=== PATIENT | male | born 1985 | race Caucasian/White ===

== ENCOUNTER 2021-04-05 13:14 | Emergency (ER) | payer OTHER ==
[2021-04-05 13:22] VITALS: TEMP 98.1
--- NOTE | 2021-04-05 13:23 | ED ---
General Adult HPI - General Stated complaint: overdose Time Seen by Provider: 04/05/21 13:14 Source: patient, RN notes reviewed, old records reviewed - History of Present Illness Initial comments: This is a 35-year-old male who is brought in by EMS after he [facility] his car into the [facility]. Patient stated he used heroin and then the next he remembers his doctor to the paramedics. According to the paramedics when fire arrived they could not obtain a pulse so they put the AED on the patient and no shock was advised they still could not palpate a pulse and they started with the lucus device. When EMS arrived they gave the patient Narcan immediately and checked for pulses and had a pulse. CPR patient quickly became alert and had no complaints. Patient continues to state he has no complaints. Patient states he does not want any blood work done he feels fine. Patient denies any shortness of breath. Patient is willing to do an EKG and give us a urine so he can do a drug test to make sure he does not have any long-acting narcotics on board. Patient denies any nausea vomiting. Patient denies headache patient denies any other complaints at this time. - Related Data Home Medications Medication Instructions Recorded Confirmed Gabapentin [Neurontin] 600 mg PO QID 06/13/14 04/01/15 HYDROcodone/APAP 7.5-325MG [[place] 1 each PO Q8HR PRN 04/01/15 04/01/15 7.5-325] Previous Rx's Medication Instructions Recorded Dicyclomine HCl [Bentyl] 20 mg PO QID PRN #15 tab 04/01/15 Hydrocodone/Acetaminophen [[place] 1 each PO Q4HR PRN #15 tab 04/01/15 5-325] Allergies Allergy/AdvReac Type Severity Reaction Status Date / Time amoxicillin [Amoxicillin] Allergy Unknown Verified 04/01/15 14:03 Childhood codeine Allergy Rash/Hives Verified 04/01/15 14:03 Review of Systems ROS Statement: Those systems with pertinent positive or pertinent negative responses have been documented in the HPI. ROS Other: All systems not noted in ROS Statement are negative. Past Medical History Past Medical History: No Reported History Additional Past Medical History / Comment(s): back pain History of Any Multi-Drug Resistant Organisms: MRSA Date of last positivie culture/infection: 06/10/17 MDRO Source:: [place] Past Surgical History: Orthopedic Surgery Past Psychological History: No Psychological Hx Reported Past Alcohol Use History: Occasional Past Drug Use History: None Reported General Exam - General Exam Comments Initial Comments: GENERAL: Patient is well-developed and well-nourished. Patient is nontoxic and well- hydrated and is in no acute distress. ENT: Neck is soft and supple. No significant lymphadenopathy is noted. Oropharynx is clear. Moist mucous membranes. Neck has full range of motion without eliciting any pain. EYES: The sclera were anicteric and conjunctiva were pink and moist. Extraocular movements were intact and pupils were equal round and reactive to light. Eyelids were unremarkable. PULMONARY: Unlabored respirations. Good breath sounds bilaterally. No audible rales rhonchi or wheezing was noted. CARDIOVASCULAR: There is a regular rate and rhythm without any murmurs gallops or rubs. ABDOMEN: Soft and nontender with normal bowel sounds. SKIN: Skin is clear with no lesions or rashes and otherwise unremarkable. NEUROLOGIC: Patient is alert and oriented x3. Cranial nerves II through XII are grossly intact. Motor and sensory are also intact. Normal speech, volume and content. Symmetrical smile. MUSCULOSKELETAL: Normal extremities with adequate strength and full range of motion. LYMPHATICS: No significant lymphadenopathy is noted PSYCHIATRIC: Normal psychiatric evaluation. Course Vital Signs 04/05/21 13:17 Temperature 98.1 F Pulse Rate 124 H Respiratory 22 Rate Blood Pressure 139/90 O2 Sat by Pulse 100 Oximetry Medical Decision Making - Medical Decision Making EKG shows sinus tachycardia at 160 bpm PA interval on a 44 QRS is 84 QT interval 326 QTC is 453. Patient's EKG shows no ST segment elevation or depression. Patient had methamphetamine on board in his urine and urinary admitted to doing heroin. Patient does not want any further workup the patient does not want blood work or chest x-ray. Patient states he is asymptomatic. - Lab Data Lab Results 04/05/21 Range/Units 14:17 Urine Opiates Screen Not Detected (NotDetected) Ur Oxycodone Screen Not Detected (NotDetected) Urine Methadone Screen Not Detected (NotDetected) Ur Propoxyphene Screen Not Detected (NotDetected) Ur Barbiturates Screen Not Detected (NotDetected) U Tricyclic Antidepress Not Detected (NotDetected) Ur Phencyclidine Scrn Not Detected (NotDetected) Ur Amphetamines Screen Detected H (NotDetected) U Methamphetamines Scrn Detected H (NotDetected) U Benzodiazepines Scrn Not Detected (NotDetected) Urine Cocaine Screen Not Detected (NotDetected) U Marijuana (THC) Screen Not Detected (NotDetected) Disposition Clinical Impression: Methamphetamine abuse, Heroin abuse Disposition: HOME SELF-CARE Condition: Good Instructions (If sedation given, give patient instructions): Adult Overdose (ED), Methamphetamine Abuse (ED), Opioid Use Disorder (ED) Is patient prescribed a controlled substance at d/c from ED?: No Referrals: Magnolia Chen DO [Primary Care Provider] - 1-2 days Time of Disposition: 14:41
[2021-04-05 14:33] LABS: Amphetamine Screen,Urine Detected (NotDetected); Cocaine Screen,Urine Not Detected (NotDetected); Opiate Screen,Urine Not Detected (NotDetected); Phencyclidine Screen,Urine Not Detected (NotDetected); Urn Cannabinoid Scrn Not Detected (NotDetected)
[2021-04-05 14:34] LABS: Barbiturate Screen,Urine Not Detected (NotDetected); Benzodiazepines Screen,Urine Not Detected (NotDetected); Methadone Screen, Urine Not Detected (NotDetected); Oxycodone Screen, Urine Not Detected (NotDetected); Tricyclic Antidepressant,Urine Not Detected (NotDetected)
[2021-04-05 14:41] VITALS: RESP 18
[2021-04-05 14:57] VITALS: BP 158/102; PULSE 103
== END 2021-04-05 14:57 | disposition home or self-care (01) ==
LOC: EC 13:14
DX: F15.10 Other stimulant abuse, uncomplicated (principal); F11.10 Opioid abuse, uncomplicated
CPT/HCPCS: 80306; 93005; 99284

== ENCOUNTER 2021-08-01 21:44 | Emergency (ER) | payer OTHER ==
[2021-08-01 22:02] VITALS: RESP 18
--- NOTE | 2021-08-01 22:27 | ED ---
Overdose HPI - General Chief Complaint: Overdose Stated Complaint: Overdose Time Seen by Provider: 08/01/21 21:48 Source: patient, EMS, RN notes reviewed, old records reviewed Limitations: no limitations - History of Present Illness Initial Comments: This is a 35-year-old male to the emergency department for evaluation. Patient has history of drug abuse. Patient coming in with known positive opiate overdose today. Patient given Narcan for overdose without depression other drug abuse per homicidal or suicidal thoughts. Patient does admit to relapse MD Complaint: accidental overdose -: minutes(s) Intent: unwilling to say How Overdose Was Discovered: family/friend present at time, called 911 Context: Intentional Overdose: drug/ETOH problems Context: Accidental Overdose: wanted to get high Associated Symptoms: depression Treatments Prior to Arrival: narcan - Related Data Home Medications Medication Instructions Recorded Confirmed Gabapentin [Neurontin] 600 mg PO QID 06/13/14 04/01/15 HYDROcodone/APAP 7.5-325MG [[place] 1 each PO Q8HR PRN 04/01/15 04/01/15 7.5-325] Previous Rx's Medication Instructions Recorded Dicyclomine HCl [Bentyl] 20 mg PO QID PRN #15 tab 04/01/15 Hydrocodone/Acetaminophen [[place] 1 each PO Q4HR PRN #15 tab 04/01/15 5-325] Allergies Allergy/AdvReac Type Severity Reaction Status Date / Time amoxicillin [Amoxicillin] Allergy Unknown Verified 08/01/21 21:56 Childhood codeine Allergy Rash/Hives Verified 08/01/21 21:56 Review of Systems ROS Statement: Those systems with pertinent positive or pertinent negative responses have been documented in the HPI. ROS Other: All systems not noted in ROS Statement are negative. Past Medical History Past Medical History: No Reported History Additional Past Medical History / Comment(s): back pain History of Any Multi-Drug Resistant Organisms: None Reported Date of last positivie culture/infection: 06/10/17 MDRO Source:: [place] Past Surgical History: Orthopedic Surgery Additional Past Surgical History / Comment(s): Right knee arthroscopic surgery, Past Psychological History: No Psychological Hx Reported Smoking Status: Former smoker Past Alcohol Use History: Occasional Past Drug Use History: Prescription Drug Abuse General Exam Limitations: no limitations General appearance: alert, in no apparent distress, anxious Head exam: Present: atraumatic, normocephalic, normal inspection Eye exam: Present: normal appearance, PERRL, EOMI. Absent: scleral icterus, conjunctival injection, periorbital swelling ENT exam: Present: normal exam, mucous membranes moist Neck exam: Present: normal inspection. Absent: tenderness, meningismus, lymphadenopathy Respiratory exam: Present: normal lung sounds bilaterally. Absent: respiratory distress, wheezes, rales, rhonchi, stridor Cardiovascular Exam: Present: normal rhythm, tachycardia, normal heart sounds. Absent: systolic murmur, diastolic murmur, rubs, gallop, clicks GI/Abdominal exam: Present: soft, normal bowel sounds. Absent: distended, tenderness, guarding, rebound, rigid Extremities exam: Present: normal inspection, full ROM, normal capillary refill. Absent: tenderness, pedal edema, joint swelling, calf tenderness Back exam: Present: normal inspection Neurological exam: Present: alert, oriented X3, CN II-XII intact Psychiatric exam: Present: normal affect, normal mood Skin exam: Present: warm, dry, intact, normal color. Absent: rash Course Vital Signs 08/01/21 08/01/21 21:50 22:42 Temperature 97.6 F 98.1 F Pulse Rate 117 H 108 H Respiratory 18 18 Rate Blood Pressure 131/110 140/105 O2 Sat by Pulse 99 98 Oximetry - Reevaluation(s) Reevaluation #1: Medical record is reviewed Patient symptoms are improved Patient informed of results and questions answered Medical Decision Making - Medical Decision Making 35 male to the ER for evaluation of opiate overdose responding to Narcan. Patient is not homicidal or suicidal. Awake and alert currently and can be discharged home - EKG Data -: EKG Interpreted by Me (EKG is sinus tachycardia 108 RI 148 QRS 86 QTc 439) Disposition Clinical Impression: Poisoning by opiates and related narcotics, other, Drug overdose Disposition: HOME SELF-CARE Condition: Good Instructions (If sedation given, give patient instructions): Adult Overdose (ED) Is patient prescribed a controlled substance at d/c from ED?: No Referrals: Magnolia Chen DO [Primary Care Provider] - 1-2 days
[2021-08-01 22:47] VITALS: BP 140/105; PULSE 108; TEMP 98.1
== END 2021-08-01 22:46 | disposition home or self-care (01) ==
LOC: EC 21:44
DX: T40.2X1A Poisoning by other opioids, accidental (unintentional), initial encounter (principal); Z88.5 Allergy status to narcotic agent; Z87.891 Personal history of nicotine dependence
CPT/HCPCS: 93005; 99284